=== PATIENT | male | born 1935 | race Caucasian/White ===

== ENCOUNTER 2016-11-25 23:58 | Emergency (ER) | payer MEDICARE, OTHER ==
[2016-11-26] MEDS ORDERED: Tetracaine HCl/PF 0.5% 4 ML Bottle EYERT ONE (01:01)
--- NOTE | 2016-11-26 01:25 | EDM.PDOC ---
ED HPI GENERAL MEDICAL PROBLEM - General Chief Complaint: Eye Problems Stated Complaint: SOMETHING IN EYE Time Seen by Provider: 11/26/16 00:45 Source of Information: Reports: Patient History Limitations: Reports: No Limitations - History of Present Illness INITIAL COMMENTS - FREE TEXT/NARRATIVE: This patient got some rust in his right eye while working under a vehicle earlier today. He feels like something is under the lateral margin of the right upper lid. No vision changes. Right Eye Pain Score (Numeric/FACES): 4 - Related Data Allergies Allergy/AdvReac Type Severity Reaction Status Date / Time Penicillins Allergy unknown Verified 11/26/16 00:37 Past Medical History Cardiovascular History: Reports: Hypertension Social & Family History - Tobacco Use Smoking Status *Q: Never Smoker Second Hand Smoke Exposure: No - Caffeine Use Caffeine Use: Reports: Coffee - Recreational Drug Use Recreational Drug Use: No ED ROS GENERAL - Review of Systems Review Of Systems: ROS reveals no pertinent complaints other than HPI. ED EXAM GENERAL W FULL EYE - Physical Exam Exam: See Below Exam Limited By: No Limitations General Appearance: Alert, WD/WN, Mild Distress Visual Acuity (R) 20/: 20 Visual Acuity (L) 20/: 30 With Correction: Yes Eyelids: Right: Lid Everted for Exam ( she is), Bilateral: Normal Appearance Conjunctiva & Sclera: Right: Injected ( confused is she thinks she still ) Cornea Exam: Right: Normal Appearance Extraocular Movements: Bilateral: Intact ( is looking he is destruction of all is the only history is as ) Pupillary Size: Bilateral: 3 mm (she is ) Pupillary Reaction: Bilateral: Brisk ( as) Anterior Chamber: Bilateral: Normal Appearance (the she's drink) Course - Vital Signs Last Recorded V/S: Last Vital Signs Temp 37.4 C 11/26/16 00:24 Pulse 80 11/26/16 00:24 Resp 16 11/26/16 00:24 BP 187/110 H 11/26/16 00:24 Pulse Ox 95 11/26/16 00:24 - Orders/Labs/Meds Meds: Medications Discontinued Medications Generic Name Dose Route Start Last Admin Trade Name Freq PRN Reason Stop Dose Admin Tetracaine HCl 1 ml 11/26/16 01:01 11/26/16 01:07 Tetracaine 0.5% Steri-Unit Zohra EYERT 11/26/16 01:02 1 dose ASDIRECTED ONE Administration - Re-Assessments/Exams Free Text/Narrative Re-Assessment/Exam: 11/26/16 01:22 Tetracaine was applied to the right eye. The eye was carefully inspected and the lid upper lid was everted. No foreign body was seen. Forcing staining was then applied and the eye was examined under black light. There was no corneal abrasion or foreign body seen and there is no foreign body seen anywhere and the lids were again everted. There was 1 minute dark area in the lateral fornix but turned out to be a vessel on end. The eye was then flushed with normal saline and examined the third time and no abnormalities were seen Departure - Departure Time of Disposition: :25 Disposition: Home, Self-Care 01 Condition: Fair Clinical Impression: Foreign body in conjunctival sac, right eye, initial encounter - Discharge Information Forms: ED Department Discharge Additional Instructions: It appears there was probably some kind of foreign body in your right eye which was subsequently washed out. It probably scratched under your eyelid but there was no foreign body seen. There doesn't appear to be any corneal abrasion. Apply the antibiotic ointment 2 or 3 times daily. This will make your vision blurry. You should be back to normal in about 2 days. If you continue to have problems on Sunday then you should see one of the local eye doctors.
== END 2016-11-26 01:36 | disposition home or self-care (01) ==
LOC: EDBD → JP.ED 23:58 → MERGE 23:58 → JP.ED 11-26 01:36
DX: T15.11XA Foreign body in conjunctival sac, right eye, initial encounter (principal); I10 Essential (primary) hypertension; Z88.0 Allergy status to penicillin
CPT/HCPCS: 99283; A9270